=== PATIENT | male | born 1980 | race Two or more races ===

== ENCOUNTER 2019-09-03 09:08 | Outpatient (CLI) | payer OTHER | END 2019-09-03 09:15 | disposition home or self-care (01) | LOC: SONOGRAMA 09:08 | DX: E04.1 Nontoxic single thyroid nodule (principal) ==

== ENCOUNTER 2021-05-30 18:02 | Emergency (ER) | payer OTHER ==
[~2021-05-30] VITALS: Ht 175.3 cm; Wt 130.6 kg
[2021-05-30] MEDS ORDERED: LOSARTAN-HCTZ1 EACH (18:56)
== END 2021-05-30 23:10 | disposition home or self-care (01) ==
LOC: ER 18:02
DX: J03.90 Acute tonsillitis, unspecified (principal); Z03.818 Encounter for observation for suspected exposure to other biological agents ruled out